=== PATIENT | female | born 1970 | race Caucasian/White ===

== ENCOUNTER 2017-05-28 21:11 | Emergency (ER) | payer OTHER ==
[2017-05-28 21:26] VITALS: BP 132/69
== END 2017-05-29 00:15 | disposition left against medical advice (07) ==
LOC: ED 21:11
DX: Z53.21 Procedure and treatment not carried out due to patient leaving prior to being seen by health care provider (principal)

== ENCOUNTER 2017-06-20 18:48 | Emergency (ER) | payer OTHER ==
[2017-06-20 20:41] VITALS: BP 109/73
== END 2017-06-20 20:50 | disposition home or self-care (01) ==
LOC: ED 18:48
DX: S29.011A Strain of muscle and tendon of front wall of thorax, initial encounter (principal); S80.812A Abrasion, left lower leg, initial encounter; S80.811A Abrasion, right lower leg, initial encounter; E03.9 Hypothyroidism, unspecified; V47.5XXA Car driver injured in collision with fixed or stationary object in traffic accident, initial encounter; Y99.8 Other external cause status; Y93.89 Activity, other specified; Y92.89 Other specified places as the place of occurrence of the external cause
CPT/HCPCS: Q0092

== ENCOUNTER 2018-01-10 11:48 | Emergency (ER) | payer OTHER ==
[~2018-01-10] VITALS: Ht 157.5 cm; Wt 56.7 kg
[2018-01-10 14:36] VITALS: BP 112/72
== END 2018-01-10 14:36 | disposition home or self-care (01) ==
LOC: ED 11:48
DX: R42 Dizziness and giddiness (principal); H65.02 Acute serous otitis media, left ear; J45.909 Unspecified asthma, uncomplicated
CPT/HCPCS: 82962

== ENCOUNTER 2019-02-13 22:10 | Emergency (ER) | payer OTHER ==
[~2019-02-13] VITALS: Ht 152.4 cm; Wt 57.2 kg
[2019-02-13 22:14] VITALS: Ht 152.4 cm; Wt 57.2 kg
[2019-02-13 23:11] LABS: BASOPHIL % 0.1 % (0-2); PLATELET COUNT 208 x10^3mcL (130-400)
[2019-02-13 23:13] LABS: RED CELL DISTRIBUTION WIDTH 16.3 % (11.5-14.5)
[2019-02-13 23:16] LABS: microscopic required? YES
[2019-02-13 23:17] LABS: UA SPECIFIC GRAVITY 1.025 (1.005-1.035)
[2019-02-13 23:18] LABS: urine erythrocyte 2+ (NEGATIVE)
[2019-02-13 23:26] LABS: CALCIUM 8.8 mg/dL (8.5-10.1); CARBON DIOXIDE 26.5 mmol/L (21-32); CHLORIDE SERUM 107 mmol/L (98-107); CREATININE SERUM 0.6 mg/dL (0.6-1.0); GFR1 > 60 mL/min; GLUCOSE SERUM 154 mg/dL (74-106); POTASSIUM SERUM 3.8 mmol/L (3.5-5.1); SODIUM SERUM 142 mmol/L (136-145)
[2019-02-13 23:31] LABS: ALBUMIN 3.5 g/dL (3.4-5.0); ALKALINE PHOSPHATASE 111 U/L (46-116); ALT/SGPT 343 U/L (14-59); AST/SGOT 226 U/L (15-37); BILIRUBIN TOTAL 0.6 mg/dL (0.20-1.00); TOTAL PROTEIN, SERUM 8.1 g/dL (6.4-8.2)
[2019-02-14 00:13] VITALS: BP 118/57
== END 2019-02-14 00:13 | disposition home or self-care (01) ==
LOC: ED 22:10
PROVIDERS: Emergency Medicine
DX: J02.0 Streptococcal pharyngitis (principal); G43.909 Migraine, unspecified, not intractable, without status migrainosus; E03.9 Hypothyroidism, unspecified; D64.9 Anemia, unspecified
CPT/HCPCS: 87804; J0561; J1885; J2405; J7030; J8540

== ENCOUNTER 2019-11-19 21:30 | Emergency (ER) | payer OTHER ==
[~2019-11-19] VITALS: Ht 152.4 cm; Wt 71.7 kg
[2019-11-19 21:41] VITALS: Ht 152.4 cm; Wt 71.7 kg
[2019-11-19 23:41] VITALS: BP 131/80
== END 2019-11-19 23:41 | disposition home or self-care (01) ==
LOC: ED 21:30
DX: B34.9 Viral infection, unspecified (principal); J45.901 Unspecified asthma with (acute) exacerbation; R91.1 Solitary pulmonary nodule; R19.7 Diarrhea, unspecified; R42 Dizziness and giddiness; Z86.2 Personal history of diseases of the blood and blood-forming organs and certain disorders involving the immune mechanism; Z98.890 Other specified postprocedural states
CPT/HCPCS: J7512; J7613; J7644

== ENCOUNTER 2019-12-02 19:20 | Emergency (ER) | payer OTHER ==
[~2019-12-02] VITALS: Ht 152.4 cm; Wt 62.6 kg
[2019-12-02 19:25] VITALS: Ht 152.4 cm; Wt 62.6 kg
[2019-12-02 20:50] VITALS: BP 116/67
== END 2019-12-02 20:50 | disposition home or self-care (01) ==
LOC: ED 19:20
DX: N61.0 Mastitis without abscess (principal); E03.9 Hypothyroidism, unspecified; Z86.2 Personal history of diseases of the blood and blood-forming organs and certain disorders involving the immune mechanism